=== PATIENT | male | born 1970 | race Caucasian/White ===

== ENCOUNTER 2021-01-01 07:40 | Emergency (ER) | payer OTHER ==
[~2021-01-01] VITALS: Ht 177.8 cm; Wt 98.9 kg
[2021-01-01 08:33] LABS: ABSOLUTE NEUTROPHILS 7.9 thou/uL (1.4-8.2); EOSINOPHILS 2.9 % (0.0-3.0); HEMATOCRIT 35.1 % (42.0-52.0); HEMOGLOBIN 12.3 gm/dL (14.0-18.0); MCH 31.3 pg (26.0-34.0); MCV 89.3 fL (80.0-100.0); MONOCYTES 6.1 % (1.0-8.0); RBC 3.93 mil/uL (4.50-6.00); RDW 13.4 % (10.5-14.5); WBC 10.5 thou/uL (4.0-11.0)
[2021-01-01 08:41] LABS: ANION GAP 11 mmol/L (7-16); BUN 33 mg/dL (7-18); CALCIUM 9.8 mg/dL (8.5-10.1); CHLORIDE 101 mmol/L (98-107); CO2 25 mmol/L (21-32); CREATININE 1.8 mg/dL (0.7-1.3); GLUCOSE 226 mg/dL (74-106); POTASSIUM 5.4 mmol/L (3.5-5.1); SODIUM 137 mmol/L (136-145)
[2021-01-01 08:52] LABS: ALBUMIN 3.2 g/dL (3.4-5.0); AMYLASE 72 U/L (25-115); DIRECT BILIRUBIN < 0.1 mg/dL (<0.1-0.2); LIPASE 441 U/L (73-393); MAGNESIUM 1.6 mg/dL (1.8-2.4); SGOT 18 U/L (15-37); SGPT 46 U/L (30-65); TOTAL BILIRUBIN 0.3 mg/dL (0.2-1.0); TOTAL PROTEIN 7.8 g/dL (6.4-8.2); TROPONIN-I <0.06 ng/mL (<0.06)
[2021-01-01 09:19] LABS: PLATELET COUNT 294 thou/uL (150-400)
[2021-01-01] MEDS ORDERED: LISINOPRIL5 MG PO (09:48)
[2021-01-01 09:53] VITALS: BP 115/50
--- NOTE | 2021-01-01 11:31 | EKG ---
[address] [place] [address] ELECTROCARDIOGRAM REPORT Name: CLEM RAMIREZ JR [id number] Admission: 01/01/21 Attend Phys: Discharge: 01/01/21 Date of : 68 Report #: [id number] [facility] ED Test Date: 2021-01-01 Test Time: 07:46:53 Pat Name: CLEM RAMIREZ Department: Room: Gender: Manager Of Regulatory Affairs: JCHAICAIOZ : 1970 Requested By: Jasvir August Order Number: [id number] MD: Bashir Wan Measurements Intervals Cyril Rate: 66 P: 38 OH: 132 QRS: 77 QRSD: 90 T: 83 QT: 393 QTc: 412 Interpretive Statements Sinus rhythm Normal tracing No previous ECG available for comparison Electronically Signed On 01-01-2021 11:31:21 GEOMAGNETIST by Bashir Wan [email or web address] <ELECTRONICALLY SIGNED> By: Bashir Wan MD, [facility] 01/01/21 1131 0746 0746 Bashir Wan MD, FACC /EPI
== END 2021-01-01 09:55 | disposition home or self-care (01) ==
LOC: ER 07:40
PROVIDERS: Emergency Medicine
DX: E83.42 Hypomagnesemia (principal); E86.0 Dehydration; N28.9 Disorder of kidney and ureter, unspecified; R55 Syncope and collapse; R42 Dizziness and giddiness; E87.5 Hyperkalemia; E10.65 Type 1 diabetes mellitus with hyperglycemia; I10 Essential (primary) hypertension

== ENCOUNTER → 2021-02-01 | Outpatient (CLI) | payer OTHER ==
[~2021-02-01] MED LIST: LISINOPRIL5 MG PO
== END ==
LOC: LAB 12:21
PROVIDERS: ATTEND Nurse Practitioner
DX: R05 Cough (principal); R50.9 Fever, unspecified; Z20.822 Contact with and (suspected) exposure to COVID-19

== ENCOUNTER → 2021-02-10 | Outpatient (CLI) | payer OTHER ==
[2021-02-10 10:22] LABS: ABSOLUTE NEUTROPHILS 6.3 thou/uL (1.4-8.2); EOSINOPHILS 2.1 % (0.0-3.0); HEMATOCRIT 32.8 % (42.0-52.0); HEMOGLOBIN 11.3 gm/dL (14.0-18.0); LYMPHOCYTES 13.4 % (24.0-44.0); MCH 31.3 pg (26.0-34.0); MCHC 34.4 g/dL (28.0-37.0); MCV 91.1 fL (80.0-100.0); MONOCYTES 7.7 % (1.0-8.0); PLATELET COUNT 243 thou/uL (150-400); POLYS 75.8 % (36.0-66.0); RBC 3.61 mil/uL (4.50-6.00); RDW 13.4 % (10.5-14.5); URINE BILIRUBIN NEGATIVE (Negative); URINE BLOOD 2+ (Negative); URINE CLARITY CLEAR; URINE COLOR YELLOW; URINE GLUCOSE-RANDOM* NEGATIVE (Negative); URINE KETONES NEGATIVE (Negative); URINE LEUKOCYTES-REFLEX NEGATIVE (Negative); URINE NITRITE-REFLEX NEGATIVE (Negative); URINE PROTEIN (DIPSTICK) 2+ (Negative); URINE SPECIFIC GRAVITY 1.025 (1.005-1.035); URINE UROBILINOGEN 0.2 E.U./dl (0.2-1.0); WBC 8.4 thou/uL (4.0-11.0)
[2021-02-10 10:41] LABS: ALBUMIN 3.1 g/dL (3.4-5.0); AMYLASE 52 U/L (25-115); ANION GAP 9 mmol/L (7-16); BUN 35 mg/dL (7-18); CALCIUM 9.4 mg/dL (8.5-10.1); CHLORIDE 104 mmol/L (98-107); CHOLESTEROL 184 mg/dL (<200); CO2 25 mmol/L (21-32); CREATININE 1.3 mg/dL (0.7-1.3); GLUCOSE 161 mg/dL (74-106); HDL CHOLESTEROL 42 mg/dL (>40); LDL CHOLESTEROL 123 mg/dL (<100); LIPASE 306 U/L (73-393); POTASSIUM 5.1 mmol/L (3.5-5.1); SGOT 39 U/L (15-37); SGPT 83 U/L (30-65); SODIUM 138 mmol/L (136-145); TC:HDL 4.4 Ratio (Not establshd); TOTAL BILIRUBIN 0.4 mg/dL (0.2-1.0); TOTAL PROTEIN 7.7 g/dL (6.4-8.2); TRIGLYCERIDE 97 mg/dL (<150); VLDL 19 mg/dL (<40)
[2021-02-10 11:08] LABS: SQUAMOUS None Seen /LPF (0-3)
[2021-02-10 11:09] LABS: BACTERIA-REFLEX None Seen /HPF (None Seen); CASTS None Seen /LPF (None Seen); CRYSTALS None Seen /LPF (None Seen); URINE RBC 0-2 Rare /HPF (0-2); URINE WBC-REFLEX None Seen /HPF (0-5)
[2021-02-10 20:06] LABS: PSA 0.3 ng/mL (0.0-4.0)
[2021-02-10 21:06] LABS: CREATININE (ALB/CR) 71.6 mg/dL (Not Estab.); MICROALBUMIN-RND URINE 712.8 ug/mL (Not Estab.)
[2021-02-11 00:06] LABS: GLYCOHEMOGLOBIN (HGB A1C) 7.8 % (4.8-5.6)
== END ==
LOC: LAB 09:46
PROVIDERS: ATTEND Nurse Practitioner
DX: R35.1 Nocturia (principal); K85.90 Acute pancreatitis without necrosis or infection, unspecified; E10.69 Type 1 diabetes mellitus with other specified complication; K85.80 Other acute pancreatitis without necrosis or infection

== ENCOUNTER → 2021-04-14 | Outpatient (CLI) | payer OTHER | LOC: ULTRA 09:48 | PROVIDERS: ATTEND Internal Medicine Gastroenterology | DX: K80.20 Calculus of gallbladder without cholecystitis without obstruction (principal); R16.1 Splenomegaly, not elsewhere classified; R31.9 Hematuria, unspecified; R80.9 Proteinuria, unspecified ==

== ENCOUNTER → 2021-05-05 | Outpatient (CLI) | payer OTHER ==
[~2021-05-05] MED LIST changes: +ADVIL200 M3 PO; +ASA81BEC PO; +CARVEDILOL6.25 M1 PO; +HUMALOG100 UNIT/1 SUBQ; +LANTUS SUBQ
[2021-05-05 13:12] LABS: BASOPHILS 0.9 % (0.0-2.0); EOSINOPHILS 2.9 % (0.0-3.0); HEMATOCRIT 32.6 % (42.0-52.0); HEMOGLOBIN 11.3 gm/dL (14.0-18.0); LYMPHOCYTES 15.6 % (24.0-44.0); MCH 30.8 pg (26.0-34.0); MCHC 34.6 g/dL (28.0-37.0); MCV 88.8 fL (80.0-100.0); MONOCYTES 8.1 % (1.0-8.0); PLATELET COUNT 268 thou/uL (150-400); POLYS 72.5 % (36.0-66.0); RBC 3.67 mil/uL (4.50-6.00); RDW 13.1 % (10.5-14.5); WBC 9.6 thou/uL (4.0-11.0)
[2021-05-05 13:25] LABS: CREATININE 1.4 mg/dL (0.7-1.3); POTASSIUM 5.5 mmol/L (3.5-5.1); TOTAL BILIRUBIN 0.4 mg/dL (0.2-1.0); TOTAL PROTEIN 7.5 g/dL (6.4-8.2); URIC ACID* 6.6 mg/dL (3.5-7.2)
== END ==
LOC: LAB 12:25
PROVIDERS: ATTEND Nurse Practitioner
DX: M25.562 Pain in left knee (principal)

== ENCOUNTER → 2021-05-23 | Outpatient (CLI) | payer OTHER ==
[~2021-05-23] VITALS: Ht 177.8 cm; Wt 94.3 kg
--- NOTE | 2021-05-25 16:06 | PATH ---
[facility] [address] [address] PATHOLOGY RPT PROCEDURE Name: CLEM RAMIREZ Room #: REG MELODIE Betts.#: [id number] Admission: 05/23/21 Date of : 68 Discharge: Report #: [id number] Path Case #: [id number] [facility] Accession Number: [id number] . 01 Material submitted: . PART A: sigmoid colon - SIGMOID POLYPS X2 PART B: rectum - RECTAL POLYP . 01 Clinical history: . COLONOSCOPY SCREENING COLON COLON POLYPS . 02 Diagnosis: A. Polyps x2, sigmoid polyps, endoscopic biopsy: - Both fragments showing hyperplastic polyp. - Negative for dysplasia. . B. Polyp, rectal polyp, endoscopic biopsy: - Hyperplastic polyp. - Negative for dysplasia. . (IUV:mml; 05/24/2021) QLM 05/24/2021 1427 Local . 02 Electronically signed: . Ade Lincoln MD, Pathologist NPI- [id number] . 01 Gross description: . A. The specimen is received in formalin, labeled "Clem Ramirez Jr., sigmoid colon polyp x2" and consists of 2 pale randall soft irregular tissues aggregating 0.6 x 0.3 x 0.2 cm which are submitted in toto in A1. . B. The specimen is received in formalin, labeled "Frederick Barragan, Clem, rectal polyp" and consists of 2 pale randall tissues aggregating 0.5 x 0.4 x 0.2 cm which are submitted in toto in B1. ([facility]; 05/23/2021) DKA/DKA 05/24/2021 1505 Local . 02 Pathologist provided ICD-10: K63.5, K62.1 . 02 CPT . 107197, 800649 Specimen Comment: A courtesy copy of this report has been sent to [phone] Specimen Comment: [phone] [address] PATHOLOGY RPT PROCEDURE Name: CLEM RAMIREZ JR Room #: REG [facility]#: [id number] Admission: 05/23/21 Date of : 68 Discharge: Report #: [id number] Path Case #: [id number] Specimen Comment: Report sent to / DR LATIF Performed at: 01 [facility] [place] [address] [facility] [address], [place] [id number] MD Les Mcguire MD Phone: [phone] Performed at: [address] [id number] MD Ade Lincoln MD Phone: [phone]
== END | disposition home or self-care (01) ==
LOC: GI 05-09 12:56
PROVIDERS: ATTEND Internal Medicine Gastroenterology
DX: Z12.11 Encounter for screening for malignant neoplasm of colon (principal); K63.5 Polyp of colon; I12.9 Hypertensive chronic kidney disease with stage 1 through stage 4 chronic kidney disease, or unspecified chronic kidney disease; N18.30 Chronic kidney disease, stage 3 unspecified; I25.10 Atherosclerotic heart disease of native coronary artery without angina pectoris; E10.9 Type 1 diabetes mellitus without complications; E78.00 Pure hypercholesterolemia, unspecified; Z98.890 Other specified postprocedural states; Z79.899 Other long term (current) drug therapy; Z90.49 Acquired absence of other specified parts of digestive tract; Z87.891 Personal history of nicotine dependence; Z79.4 Long term (current) use of insulin; Z95.1 Presence of aortocoronary bypass graft; Z88.0 Allergy status to penicillin; Z88.8 Allergy status to other drugs, medicaments and biological substances
CPT/HCPCS: 62110; 62900

== ENCOUNTER 2021-07-02 18:08 | Emergency (ER) | payer OTHER ==
[~2021-07-02] VITALS: Ht 177.8 cm; Wt 92.5 kg
[2021-07-02 19:58] VITALS: BP 129/79
== END 2021-07-02 19:59 | disposition home or self-care (01) ==
LOC: ER 18:08
DX: M25.551 Pain in right hip (principal); E11.9 Type 2 diabetes mellitus without complications; I10 Essential (primary) hypertension; F17.210 Nicotine dependence, cigarettes, uncomplicated; Z90.49 Acquired absence of other specified parts of digestive tract; Z79.82 Long term (current) use of aspirin; Z79.4 Long term (current) use of insulin; Z79.899 Other long term (current) drug therapy; Z88.0 Allergy status to penicillin; Z88.5 Allergy status to narcotic agent

== ENCOUNTER 2021-08-09 06:26 | Inpatient (IN) | payer OTHER ==
[~2021-08-09] VITALS: Ht 177.8 cm; Wt 97.1 kg
[2021-08-09 06:31] VITALS: BP 163/70
[2021-08-09 07:44] LABS: ABSOLUTE NEUTROPHILS 10.8 thou/uL (1.4-8.2); BASOPHILS 0.5 % (0.0-2.0); EOSINOPHILS 0.8 % (0.0-3.0); HEMATOCRIT 23.8 % (42.0-52.0); HEMOGLOBIN 8.3 gm/dL (14.0-18.0); LYMPHOCYTES 6.6 % (24.0-44.0); MCH 30.8 pg (26.0-34.0); MCHC 34.9 g/dL (28.0-37.0); MCV 88.2 fL (80.0-100.0); PLATELET COUNT 230 thou/uL (150-400); POLYS 84.1 % (36.0-66.0); RDW 13.4 % (10.5-14.5); WBC 12.9 thou/uL (4.0-11.0)
[2021-08-09 07:52] LABS: CALCIUM 8.3 mg/dL (8.5-10.1); CREATININE 1.6 mg/dL (0.7-1.3); POTASSIUM 4.5 mmol/L (3.5-5.1)
[2021-08-09 08:01] LABS: ALBUMIN 2.2 g/dL (3.4-5.0); TOTAL BILIRUBIN 0.4 mg/dL (0.2-1.0); TOTAL PROTEIN 6.4 g/dL (6.4-8.2)
[2021-08-09 11:20] LABS: URINE BILIRUBIN NEGATIVE (Negative); URINE BLOOD 1+ (Negative); URINE CLARITY CLEAR; URINE COLOR YELLOW; URINE GLUCOSE-RANDOM* NEGATIVE (Negative); URINE KETONES NEGATIVE (Negative); URINE LEUKOCYTES-REFLEX NEGATIVE (Negative); URINE NITRITE-REFLEX NEGATIVE (Negative); URINE PROTEIN (DIPSTICK) TRACE (Negative); URINE UROBILINOGEN 0.2 E.U./dl (0.2-1.0)
[2021-08-09 13:01] LABS: BACTERIA-REFLEX None Seen /HPF (None Seen); SQUAMOUS None Seen /LPF (0-3); URINE RBC 1-2 Rare /HPF (NONE SEEN); URINE WBC-REFLEX 0-5 Rare /HPF (0-5)
[2021-08-09 13:02] LABS: CASTS None Seen /LPF (None Seen); CRYSTALS None Seen /LPF (None Seen)
[2021-08-09 13:30] VITALS: BP 138/69
[2021-08-09 13:36] VITALS: BP 145/69
[2021-08-09 15:32] LABS: % SATURATION 8 % (20-39); IRON 20 ug/dL (65-175); TIBC 258 ug/dL (250-450)
--- NOTE | 2021-08-09 15:56 | NUR ---
A/O, calm and cooperative. denied pain, no nausea or vomiting, vital signs monitoring, lab reviewed, will keep monitoring.
[2021-08-09 16:30] LABS: FOLIC ACID 52.2 ng/mL (8.6-58.9)
[2021-08-09 18:20] LABS: CALCIUM 8.2 mg/dL (8.5-10.1); CREATININE 1.5 mg/dL (0.7-1.3); POTASSIUM 4.3 mmol/L (3.5-5.1)
[2021-08-09 20:25] VITALS: BP 114/45
[2021-08-09 23:56] VITALS: BP 128/52
--- NOTE | 2021-08-10 04:33 | NUR ---
Pt is A/OX4,VSS. Denies pain,N/V on admission. C/o chills on and off febrile 101.2 Dr Cabrales notified and new orders given for Tylenol/blood cultures. Medicated with Tylenol with some relief noted temp 99.6. Up ad vianney in room,NSR on telemetry. Pt has been NPO since midnight for EGD today. Resting w/o any distress,will continue to monitor pt.
[2021-08-10 05:53] VITALS: BP 121/53
--- NOTE | 2021-08-10 07:17 | EKG ---
[address] [address] ELECTROCARDIOGRAM REPORT Name: CLEM RAMIREZ Room #: 459-P ADM IN M.R.#: [id number] Admission: 08/09/21 Attend Phys: David Quinn MD Discharge: Date of : 68 Report #: [id number] [facility] ED Test Date: 2021-08-09 Test Time: 06:37:16 Pat Name: CLEM RAMIREZ Department: Room: 45 Gender: M Certified Surgical Technician: TC : 1970 Requested By: Singh Marroquin Order Number: [id number] MD: Benito Blancas Measurements Intervals [place] Rate: 83 P: 44 VA: 137 QRS: 53 QRSD: 87 T: 58 QT: 351 QTc: 413 Interpretive Statements Sinus rhythm Probable left atrial enlargement RSR' in V1 or V2, probably normal variant Compared to ECG 01/01/2021 07:46:53 RSR' in V1 or V2 now present Electronically Signed On 08-10-2021 7:17:36 CDT by Benito Blancas [email or web address] <ELECTRONICALLY SIGNED> By: Benito Blancas MD, [facility] 08/10/21 0717 0637 0637 Benito Blancas MD, [facility] /EPI
[2021-08-10 07:54] VITALS: BP 122/59
[2021-08-10 09:31] LABS: HEMATOCRIT 21.7 % (42.0-52.0); HEMOGLOBIN 7.4 gm/dL (14.0-18.0); MCH 29.9 pg (26.0-34.0); MCHC 34.2 g/dL (28.0-37.0); MCV 87.2 fL (80.0-100.0); RBC 2.49 mil/uL (4.50-6.00); RDW 13.2 % (10.5-14.5); WBC 10.7 thou/uL (4.0-11.0)
[2021-08-10 09:40] LABS: CALCIUM 7.9 mg/dL (8.5-10.1)
[2021-08-10 09:50] LABS: CREATININE 3.3 mg/dL (0.7-1.3)
[2021-08-10 12:00] VITALS: BP 109/57
[2021-08-10 16:00] VITALS: BP 131/65
--- NOTE | 2021-08-10 16:23 | NUR ---
PT ADMITTED RELATED TO ANEMIA. CM REVIEWED CHART AND SPOKE WITH CARE TEAM. CM MET WITH PT AND SPOUSE AT BEDSIDE THIS DAY. PT APPEARED TO BE A&O X4. CM ROLE INTRODUCED. PT INDICATED THAT HE RESIDES IN AN APARTMENT WITH HIS , SON, AND BROTHER IN LAW. 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 PT INDICATED NO HH OR OP THERAPY HX. 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 PT INDICATED HE PLANS TO RETURN HOME ONCE MEDICALLY STABLE. PT HAD EGD THIS DAY. CM FOLLOWING REGARDING DC PLANNING.
[2021-08-10 20:22] VITALS: BP 128/75
[2021-08-10 22:16] VITALS: BP 135/62
[2021-08-11 04:00] VITALS: BP 118/51
[2021-08-11 06:13] LABS: HEMATOCRIT 20.9 % (42.0-52.0); HEMOGLOBIN 7.4 gm/dL (14.0-18.0); MCH 30.8 pg (26.0-34.0); MCHC 35.3 g/dL (28.0-37.0); MCV 87.4 fL (80.0-100.0); RBC 2.39 mil/uL (4.50-6.00); RDW 13.6 % (10.5-14.5); WBC 9.4 thou/uL (4.0-11.0)
--- NOTE | 2021-08-11 07:50 | NUR ---
Pt A/OX4,VSS. Up ad vianney w/o any problems. Denies pain,N/V. Pending clarification from surgeon/GI if going for lap alexa or dc and have ERCP/Colonoscopy as outpatient. NSR on telemetry. IVF infusing via LAC w/o any problems. Will continue to monitor pt.
[2021-08-11 08:04] VITALS: BP 121/57
--- NOTE | 2021-08-11 09:39 | 2DMMODE ---
[facility] [address] [place] [address] 2 D/M-MODE ECHOCARDIOGRAM Name: CLEM RAMIREZ Room #: 459-P ADM IN M.R.#: [id number] Admission: 08/09/21 Attend Phys: Chauncey Cabrales MD Discharge: Date of : 68 Report #: [id number] THIS REPORT FOR: cc: Chauncey Cabrales MD, Neal A. MD Santiago, Patrick MD [facility] ~ APPROVED REPORT Study performed: 08/11/2021 08:49:04 EXAM: Comprehensive 2D, Doppler, and color-flow Echocardiogram Patient Location: Bedside Room #: 459 Status: routine BSA: 2.15 HR: 66 bpm BP: 121/57 mmHg Rhythm: NSR Other Information Study Quality: Good Indications Diabetes Dyspnea CAD Hypertension/HDD 2D Dimensions RVDd: 36.74 mm IVSd: 9.78 (7-11mm) LVOT Diam: 22.03 (18-24mm) LVDd: 48.08 mm PWd: 9.89 (7-11mm) Ascending Ao: 33.41 (22-36mm) LVDs: 31.08 (25-40mm) Left Atrium: 47.39 (27-40mm) Aortic Root: 29.45 mm IVC: 18.00 mm Volumes Left Atrial Volume (Systole) Single Plane 4CH: 68.33 mL Single Plane 2CH: 39.89 mL LA ESV Index: 27.00 mL/m2 Aortic Valve AoV Peak Juan.: 1.46 m/s [facility] [employer] [address] 2 D/M-MODE ECHOCARDIOGRAM Name: CLEM RAMIREZ Room #: 459-P [facility] IN .R.#: [id number] Admission: 08/09/21 Attend Phys: Chauncey Cabrales, Discharge: Date of : 68 Report #: [id number] AO Peak Gr.: 8.54 mmHg LVOT Max P.38 mmHg LVOT Max V: 1.16 m/s EVA Vmax: 3.02 cm2 Mitral Valve E/A Ratio: 1.4 MV Decel. Time: 263.19 ms MV E Max Juan.: 1.17 m/s MV A Juan.: 0.84 m/s MV PHT: 76.32 ms IVRT: 73.82 ms Pulmonary Valve PV Peak Juan.: 1.34 m/s PV Peak Gr.: 7.13 mmHg Pulmonary Vein P Vein S: 0.68 m/s P Vein A: 0.22 m/s P Vein D: 0.60 m/s P Vein A Dur.: 73.8 msec P Vein S/D Ratio: 1.13 Tricuspid Valve TR Peak Juan.: 2.51 m/s TR Peak Gr.: 25.29 mmHg PA Pressure: 30.00 mmHg Left Ventricle The left ventricle is normal size. There is normal LV segmental wall motion. There is normal left ventricular wall thickness. Left ventricular systolic function is normal. The left ventricular ejection fraction is within the normal range. LVEF is 60-65%. The left ventricular diastolic function is normal. Right Ventricle The right ventricle is normal size. The right ventricular systolic function is normal. Atria The left atrium size is normal. The right atrium size is normal. Aortic Valve The aortic valve is normal in structure. No aortic regurgitation is present. There is no aortic valvular stenosis. Mitral Valve The mitral valve is normal in structure. Trace mitral regurgitation. [facility] [address] [place] [address] 2 D/M-MODE ECHOCARDIOGRAM Name: CLEM RAMIREZ Room #: 459-P [facility] IN .R.#: [id number] Admission: 08/09/21 Attend Phys: Chauncey Cabrales, Discharge: Date of : 68 Report #: [id number] No evidence of mitral valve stenosis. Tricuspid Valve The tricuspid valve is normal in structure. There is trace tricuspid regurgitation. Estimated PAP 30 mmHg. There is no pulmonary hypertension. Pulmonic Valve The pulmonary valve is normal in structure. There is no pulmonic valvular regurgitation. Great Vessels The aortic root is normal in size. IVC is normal in size and collapses >50% with inspiration. Pericardium There is no pericardial effusion. <Conclusion> Normal left ventricle size/wall thickness Ejection fraction 60-65%, no obvious segmental wall motion abnormality Normal right ventricle size/function Normal atrial size Normal aortic/mitral valve structure and function Trace tricuspid valve insufficiency Pulmonary systolic pressure estimated 30 mmHg No pericardial effusion Normal aortic root size <ELECTRONICALLY SIGNED> By: Benito Blancas MD, FACC 08/11/21938 8 8 Benito Blancas MD, FACC /INF
[2021-08-11 10:34] LABS: CALCIUM 7.8 mg/dL (8.5-10.1); POTASSIUM 5.2 mmol/L (3.5-5.1)
[2021-08-11 10:35] LABS: CREATININE 5.1 mg/dL (0.7-1.3)
[2021-08-11 15:30] VITALS: BP 124/65
--- NOTE | 2021-08-11 16:58 | NUR ---
NEPHROLOGY AND GENERAL SURGERY CONSULTED. CM FOLLOWING REGARDING DC PLANNING.
--- NOTE | 2021-08-11 18:39 | NUR ---
PT RESTED IN BED TODAY AND REMIANED ON IVF. PT PLANNIMG FOR SURGICAL PROCEDURE IN AM. WILL CONTINUE TO ASSESS.
[2021-08-11 19:46] VITALS: BP 122/58
[2021-08-12] VITALS (7 sets, daily range): BP systolic 117–146; BP diastolic 44–66
--- NOTE | 2021-08-12 03:51 | NUR ---
Pt A/OX4,VSS. Up ad vianney w/o any problems. Denies pain,N/V on assessment. Pt had a shower at HS. NPO since midnight for lap alexa. NSR on telemetry. Resting quietly w/o any distress,will continue to monitor pt.
[2021-08-12 05:32] LABS: HEMATOCRIT 20.7 % (42.0-52.0); HEMOGLOBIN 7.2 gm/dL (14.0-18.0); MCH 30.3 pg (26.0-34.0); MCV 86.6 fL (80.0-100.0); RBC 2.39 mil/uL (4.50-6.00); RDW 13.2 % (10.5-14.5); WBC 8.5 thou/uL (4.0-11.0)
[2021-08-12 06:09] LABS: ALBUMIN 1.9 g/dL (3.4-5.0); CALCIUM 7.9 mg/dL (8.5-10.1); CREATININE 4.9 mg/dL (0.7-1.3); POTASSIUM 4.5 mmol/L (3.5-5.1)
--- NOTE | 2021-08-12 10:07 | PATH ---
[facility] [address] [place] [address] PATHOLOGY RPT PROCEDURE Name: CLEM RAMIREZ JANA Room #: 459-P ADM IN M.R.#: [id number] Admission: 08/09/21 Date of : 68 Discharge: Report #: [id number] Path Case #: [id number] [facility] Accession Number: [id number] . 01 Material submitted: . esophagus - DISTAL ESOPHAGUS BIOPSY- R/O MORALES'S. Modifiers: distal . 01 Clinical history: . ESOPHAGOGASTRODUODENOSCOPY NAUSEA AND ANEMIA IRREGULAR Z-LINE SLURRED SPEECH . 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 - Moderate acute and chronic esophagitis present within the background. - No definitive dysplastic features present within the examined tissue. - Detached scant benign squamous epithelial cells present within the background showing reactive changes. (IUV:butcher all round; 08/11/2021) MBR 08/11/2021 1314 Local . 02 Electronically signed: . Ade Lincoln MD, Pathologist NPI- [id number] . 01 Gross description: . The specimen is received in formalin, labeled "Clem Ramirez Jr., distal esophagus biopsy". Received is a single segment of pale randall tissue measuring 0.4 cm in maximum dimensions. The specimen is submitted entirely in cassette A1. ([facility]; 08/10/2021) NRI/NRI 08/10/2021 2127 Local . 02 Pathologist provided ICD-10: K22.70, K20.90 . 02 CPT . 719104 Specimen Comment: A courtesy copy of this report has been sent to [phone] Specimen Comment: [phone], Specimen Comment: Report sent to , DR LATIF / DR HYMAN Performed at: 01 [place] [address] PATHOLOGY RPT PROCEDURE Name: CLEM RAMIREZ JR Room #: 459-P [facility] IN ..#: [id number] Admission: 08/09/21 Date of : 68 Discharge: Report #: [id number] Path Case #: [id number] [facility] [place] [address] [facility] [address], [place] [id number] MD Les Mcguire MD Phone: [phone] Performed at: [address] [id number] MD Ade Lincoln MD Phone: [phone]
--- NOTE | 2021-08-12 14:52 | NUR ---
PT HAVING LAP ZENY WITH COLANGIOGRAM THIS DAY. IT IS ANTICIPATED THAT PT WILL PROGRESS TO LIKLY BE MEDICALLY STABEL TO DC HOME TO SELF CARE. CM FOLLOWING REGARDING DC PLANNING.
--- NOTE | 2021-08-12 16:40 | NUR ---
TODAY THIS PT HAS HAD HIS GALL BLADDER REMOVED AND HAS BEEN TOLERATING IT WELL WITH LITTLE NO PAIN. HE IS CURRENTLY GETTING ONE UNIT OF BLOOD TRANSFUSED AND HE HAS A CBC ORDERED FOR 1 HOUR AFTER THE FIRST UNIT IS DONE AND IF THE HGB IS NOT OVER 10 HANG THE SECOND UNIT OF BLOOD WHICH IS CURRENTLY IN THE BLOOD BANK AND READY. HE IS OTHERWISE TOLERATING THE BLOOD FINE AND IS AWAITING FOR THE NEXT PLAN. HIS SURGICAL WOUNDS ARE CLEAN DRY AND INTACT.
[2021-08-12 19:45] LABS: HEMATOCRIT 27.3 % (42.0-52.0); MCH 29.9 pg (26.0-34.0); MCHC 34.5 g/dL (28.0-37.0); MCV 86.7 fL (80.0-100.0); RBC 3.15 mil/uL (4.50-6.00); WBC 8.8 thou/uL (4.0-11.0)
[2021-08-12 19:48] LABS: HEMOGLOBIN 9.4 gm/dL (14.0-18.0)
--- NOTE | 2021-08-13 05:25 | NUR ---
PT CARE ASSUMED WITH PT IN BED.PT IS A/O X4.PT IS UP AD BRIANA.1 UNIT OF BLOOD TRANSFUSED PER DR REQUEST WITH NO ISSUES.ACCUCHECK ACHS WITH BS >500.DR LATIF NOTIFIED.WILL CONTINUE TO MONITOR PER POC
[2021-08-13 05:51] LABS: ALBUMIN 1.9 g/dL (3.4-5.0); CALCIUM 7.7 mg/dL (8.5-10.1); PHOSPHORUS 4.1 mg/dL (2.5-4.9)
[2021-08-13 05:53] VITALS: BP 153/71
[2021-08-13 06:24] LABS: CREATININE 3.6 mg/dL (0.7-1.3)
[2021-08-13 08:40] VITALS: BP 136/61
[2021-08-13 11:02] LABS: HEMATOCRIT 28.5 % (42.0-52.0); HEMOGLOBIN 9.7 gm/dL (14.0-18.0)
[2021-08-13 12:42] VITALS: BP 128/66
[2021-08-13] MEDS ORDERED: FLAGYL500 M1 PO (12:55)
[2021-08-13] MEDS ORDERED: LIPITOR40 MG PO (12:55)
[2021-08-13] MEDS ORDERED: PROTONIX40 M2 PO (12:56)
[2021-08-13 13:47] VITALS: BP 128/66
--- NOTE | 2021-08-13 13:53 | NUR ---
TODAY THIS PT IS GEARING UP FOR D/C. HE HAS RECEIVED A TOTAL OF TWO UNITS OF BLOOD AND HAS TOLERATED THEM WELL. HE HASN'T HAD ANY PAIN FOR ME THIS SHIFT HE IS PENDING D/C WE SPEAK.
--- NOTE | 2021-08-15 18:06 | PATH ---
[facility] [address] [place] [address] PATHOLOGY RPT PROCEDURE Name: CLEM RAMIREZ Room #: 459-P [facility] IN M.R.#: [id number] Admission: 08/09/21 Date of : 68 Discharge: 08/13/21 Report #: [id number] Path Case #: [id number] [facility] Accession Number: [id number] . 01 Material submitted: . gallbladder - GALLBLADDER . 01 Clinical history: . LAPAROSCOPIC CHOLECYSTECTOMY W/ GRAM CHOLELITHIASIS . 02 Diagnosis: Gallbladder, cholecystectomy: - Mild chronic cholecystitis. - Cholelithiasis. (IUV:pit; 08/15/2021) QTP 08/15/2021 [facility] Local . 02 Electronically signed: . Ade Lincoln MD, Pathologist NPI- [id number] . 01 Gross description: . Fixative: Formalin Labeled: Gallbladder Specimen received: Previously disrupted gallbladder Dimensions: 7.3 x 2.3 x 0.6 cm Serosa: Light randall-brown and adipose covered Lymph node: None identified Mucosa: Velvety and bile-stained to light randall-yellow Average wall thickness: 0.1 cm Calculi: Present, black and friable Abnormalities: None identified . A1- Core Machine Operator body, fundus, and the cystic duct margin. ([facility]; 08/12/2021) [facility] 08/12/2021 [facility]5 Local . 02 Pathologist provided ICD-10: K80.10 . 02 CPT . 111799 Specimen Comment: A courtesy copy of this report has been sent to [phone] Specimen Comment: [phone] Specimen Comment: Report sent to / DR LATIF [address] [address] PATHOLOGY RPT PROCEDURE Name: CLEM RAMIREZ Room #: 459-P [facility] IN .R.#: [id number] Admission: 08/09/21 Date of : 68 Discharge: 08/13/21 Report #: [id number] Path Case #: [id number] Performed at: 01 [facility] [address] [facility] [address], [place] [id number] MD Les Mcguire MD Phone: [phone] Performed at: [address] [id number] MD Ade Lincoln MD Phone: [phone]
== END 2021-08-13 16:11 | disposition home or self-care (01) | DRG 418 ==
LOC: ER 06:26 → EROBS 12:17 → 4W 12:17
PROVIDERS: Anesthesiology; Emergency Medicine; Internal Medicine Nephrology; Nurse Practitioner; ADMIT Family Medicine; ATTEND Family Medicine
PROC: 0DB58ZX Excision of Esophagus, Via Natural or Artificial Opening Endoscopic, Diagnostic (ICD-10-PCS; principal; 2021-08-10)
PROC: 0FT44ZZ Resection of Gallbladder, Percutaneous Endoscopic Approach (ICD-10-PCS; 2021-08-12)
PROC: BF121ZZ Fluoroscopy of Gallbladder using Low Osmolar Contrast (ICD-10-PCS; 2021-08-12)
PROC: 30233N1 Transfusion of Nonautologous Red Blood Cells into Peripheral Vein, Percutaneous Approach (ICD-10-PCS; 2021-08-12)
DX: K80.50 Calculus of bile duct without cholangitis or cholecystitis without obstruction (principal); N17.9 Acute kidney failure, unspecified; D64.9 Anemia, unspecified; K80.20 Calculus of gallbladder without cholecystitis without obstruction; I25.10 Atherosclerotic heart disease of native coronary artery without angina pectoris; E78.5 Hyperlipidemia, unspecified; T50.8X5A Adverse effect of diagnostic agents, initial encounter; N18.31 Chronic kidney disease, stage 3a; R31.9 Hematuria, unspecified; E10.22 Type 1 diabetes mellitus with diabetic chronic kidney disease; I12.9 Hypertensive chronic kidney disease with stage 1 through stage 4 chronic kidney disease, or unspecified chronic kidney disease; Z20.822 Contact with and (suspected) exposure to COVID-19; Z79.4 Long term (current) use of insulin; Z90.49 Acquired absence of other specified parts of digestive tract; Z88.0 Allergy status to penicillin; Z88.8 Allergy status to other drugs, medicaments and biological substances; Z79.82 Long term (current) use of aspirin; Z79.899 Other long term (current) drug therapy; Z95.1 Presence of aortocoronary bypass graft; Z79.1 Long term (current) use of non-steroidal anti-inflammatories (NSAID); Y92.89 Other specified places as the place of occurrence of the external cause; K22.70 Barrett's esophagus without dysplasia
CPT/HCPCS: 10045; 50010; 50101; 50411; 50555; 52265; 52266; 53307; 53310; 53312; 54022; 54118; 55245; 56462; 56525; 56526; 56674; 58574; 58910; 62110; 62900; 65131; 70005

== ENCOUNTER → 2021-08-16 | Outpatient (CLI) | payer OTHER ==
[~2021-08-16] MED LIST changes: +FLAGYL500 M1 PO; +LIPITOR40 MG PO; +PROTONIX40 M2 PO
[2021-08-16 13:25] LABS: ABSOLUTE NEUTROPHILS 9.5 thou/uL (1.4-8.2); BASOPHILS 0.9 % (0.0-2.0); EOSINOPHILS 2.6 % (0.0-3.0); HEMATOCRIT 33.7 % (42.0-52.0); HEMOGLOBIN 11.5 gm/dL (14.0-18.0); LYMPHOCYTES 9.8 % (24.0-44.0); MCHC 34.1 g/dL (28.0-37.0); MCV 87.8 fL (80.0-100.0); MONOCYTES 6.9 % (1.0-8.0); PLATELET COUNT 335 thou/uL (150-400); POLYS 79.8 % (36.0-66.0); RBC 3.84 mil/uL (4.50-6.00); RDW 14.1 % (10.5-14.5); WBC 11.9 thou/uL (4.0-11.0)
[2021-08-16 13:50] LABS: % SATURATION 25 % (20-39); ALBUMIN 2.5 g/dL (3.4-5.0); CALCIUM 8.7 mg/dL (8.5-10.1); CREATININE 1.7 mg/dL (0.7-1.3); IRON 50 ug/dL (65-175); TIBC 203 ug/dL (250-450); TOTAL BILIRUBIN 0.2 mg/dL (0.2-1.0); TOTAL PROTEIN 6.9 g/dL (6.4-8.2)
[2021-08-16 14:56] LABS: FOLIC ACID 33.3 ng/mL (8.6-58.9)
== END ==
LOC: LAB 11:35
PROVIDERS: ATTEND Nurse Practitioner
DX: D50.9 Iron deficiency anemia, unspecified (principal); E55.9 Vitamin D deficiency, unspecified; D64.9 Anemia, unspecified

== ENCOUNTER → 2021-08-24 | Outpatient (CLI) | payer OTHER | LOC: ULTRA 13:22 | PROVIDERS: ATTEND Nurse Practitioner | DX: I82.612 Acute embolism and thrombosis of superficial veins of left upper extremity (principal); M79.602 Pain in left arm; L03.114 Cellulitis of left upper limb ==

== ENCOUNTER → 2021-08-26 | Outpatient (CLI) | payer OTHER ==
[2021-08-26 15:06] LABS: BASOPHILS 0.9 % (0.0-2.0); HEMATOCRIT 36.8 % (42.0-52.0); HEMOGLOBIN 12.2 gm/dL (14.0-18.0); MCH 29.7 pg (26.0-34.0); MCHC 33.2 g/dL (28.0-37.0); MCV 89.7 fL (80.0-100.0); PLATELET COUNT 247 thou/uL (150-400); POLYS 77.1 % (36.0-66.0); RDW 15.4 % (10.5-14.5)
== END ==
LOC: LAB 13:21
PROVIDERS: ATTEND Nurse Practitioner
DX: I82.622 Acute embolism and thrombosis of deep veins of left upper extremity (principal); D64.9 Anemia, unspecified; E10.69 Type 1 diabetes mellitus with other specified complication

== ENCOUNTER 2021-09-11 22:31 | Emergency (ER) | payer OTHER ==
[~2021-09-11] VITALS: Ht 180.3 cm; Wt 94.5 kg
[2021-09-11] MEDS ORDERED: INSULIN PUMP (22:52)
[2021-09-11 23:46] LABS: ABSOLUTE NEUTROPHILS 6.5 thou/uL (1.4-8.2); BASOPHILS 1.4 % (0.0-2.0); EOSINOPHILS 3.9 % (0.0-3.0); HEMATOCRIT 31.6 % (42.0-52.0); HEMOGLOBIN 10.7 gm/dL (14.0-18.0); MCH 30.1 pg (26.0-34.0); MCHC 33.8 g/dL (28.0-37.0); MCV 89.1 fL (80.0-100.0); MONOCYTES 8.5 % (1.0-8.0); PLATELET COUNT 195 thou/uL (150-400); POLYS 71.2 % (36.0-66.0); RBC 3.55 mil/uL (4.50-6.00); RDW 15.6 % (10.5-14.5); WBC 9.2 thou/uL (4.0-11.0)
[2021-09-11 23:56] LABS: CALCIUM 8.6 mg/dL (8.5-10.1); CREATININE 1.7 mg/dL (0.7-1.3); POTASSIUM 4.2 mmol/L (3.5-5.1)
[2021-09-12] MEDS ORDERED: CEPHALEXIN500 MG PO (00:35)
[2021-09-12 01:23] VITALS: BP 183/85
== END 2021-09-12 00:45 | disposition home or self-care (01) ==
LOC: ER 22:31
PROVIDERS: Student in an Organized Health Care Education/Training Program
DX: M79.89 Other specified soft tissue disorders (principal); I25.10 Atherosclerotic heart disease of native coronary artery without angina pectoris; I10 Essential (primary) hypertension; E11.9 Type 2 diabetes mellitus without complications; F17.210 Nicotine dependence, cigarettes, uncomplicated; Z90.49 Acquired absence of other specified parts of digestive tract; Z79.899 Other long term (current) drug therapy; Z79.4 Long term (current) use of insulin; Z79.82 Long term (current) use of aspirin

== ENCOUNTER → 2021-10-28 | Outpatient (CLI) | payer OTHER ==
[~2021-10-28] MED LIST changes: +CEPHALEXIN500 MG PO; +INSULIN PUMP
== END ==
LOC: LAB 10:53
PROVIDERS: ATTEND Student in an Organized Health Care Education/Training Program
DX: Z01.812 Encounter for preprocedural laboratory examination (principal); Z20.822 Contact with and (suspected) exposure to COVID-19

== ENCOUNTER → 2021-10-31 | Outpatient (CLI) | payer OTHER ==
--- NOTE | 2021-11-02 17:06 | PATH ---
[facility] [address] [place] [address] PATHOLOGY RPT PROCEDURE Name: CLEM RAMIREZ Room #: REG [facility].#: [id number] Admission: 10/31/21 Date of : 68 Discharge: Report #: [id number] Path Case #: [id number] [facility] Accession Number: [id number] . 01 Material submitted: . cecum - CECAL POLYP X2. Modifiers: X2 . 01 Clinical history: . COLONOSCOPY COLON CANCER SCREENING POLYPS . 02 Diagnosis: Colonic mucosa (cecal polyp x 2): - Hyperplastic polyp. LBQ 11/02/2021 1516 Local . 02 Comment: We find no evidence of high grade dysplasia or of malignancy. ([facility]/db; 11/02/2021) . 02 Electronically signed: . Krishna Conti MD, Pathologist NPI- [id number] . 01 Gross description: . The specimen is received in formalin, labeled "Clem Frederick Horowitz., cecal polyp x2". Received are two segments of pale randall tissue measuring 0.7 and 0.8 cm in maximum dimensions. The specimen is submitted entirely in cassette A1. ([facility]; 11/01/2021) QAC/QA 11/01/2021 1049 Local . 02 Pathologist provided ICD-10: K63.5 . 02 CPT . 475389 Specimen Comment: A courtesy copy of this report has been sent to [phone] Specimen Comment: [phone] Specimen Comment: Report sent to / DR LATIF Performed at: 01 [facility] [address] [place] [id number] MD Les Mcguire MD Phone: [phone] Performed at: 02 [place] [address] PATHOLOGY RPT PROCEDURE Name: CLEM RAMIREZ JR Room #: REG CLI [facility]#: [id number] Admission: 10/31/21 Date of : 68 Discharge: Report #: [id number] Path Case #: [id number] [facility] [address] [place] [id number] MD Krishna Conti MD Phone: [phone]
== END | disposition home or self-care (01) ==
LOC: GI 10-17 08:01
PROVIDERS: ATTEND Internal Medicine Gastroenterology
DX: Z12.11 Encounter for screening for malignant neoplasm of colon (principal); K63.5 Polyp of colon; I10 Essential (primary) hypertension; I25.10 Atherosclerotic heart disease of native coronary artery without angina pectoris; E11.9 Type 2 diabetes mellitus without complications; Z98.890 Other specified postprocedural states; Z79.899 Other long term (current) drug therapy; Z90.49 Acquired absence of other specified parts of digestive tract; Z79.4 Long term (current) use of insulin; Z88.0 Allergy status to penicillin; Z88.8 Allergy status to other drugs, medicaments and biological substances
CPT/HCPCS: 62110; 62900